=== PATIENT | female | born 2000 | race Caucasian/White ===

== ENCOUNTER 2020-11-21 09:00 | Emergency (ER) | payer OTHER, SELFPAY ==
--- NOTE | ~2020-11-21 | CT_ITS ---
EXAMINATION: CT brain wo con DATE: 11/21/2020 09:57 INDICATION: Headache. TECHNIQUE: Computed tomography (CT) of the head was performed without intravenous contrast. The mA wa s adjusted according to patient size. Iterative reconstruction technique was employed. The dose-lengt h product was 605.33 mGy-cm. COMPARISON: Head CT 09/02/2012 FINDINGS: There is no intracranial hemorrhage, acute infarction, or abnormal intracranial mass lesion . The ventricles are normal in size. The orbits are normal. The paranasal sinuses are clear. The mast oid air cells are normal. IMPRESSION: 1. Normal brain. Reviewed, dictated and finalized at location A. NESS PROGRAM ADMINISTRATOR IMPRESSION: 1. Normal brain.
--- NOTE | ~2020-11-21 | XR_ITS ---
EXAMINATION: XR chest 2V DATE: 11/21/2020 10:01 INDICATION: Weakness and cough TECHNIQUE: frontal and lateral views of the chest were obtained. COMPARISON: Chest radiograph dated 10/12/2018 FINDINGS: The lungs remain clear with no focal airspace opacities, pulmonary edema, pleural effusion or pneumot horax. The cardiomediastinal silhouette is normal. Visualized bones and soft tissues are unremarkable . IMPRESSION: 1. Normal chest radiograph. Reviewed, dictated and finalized at location B. Y MAKER IMPRESSION: 1. Normal chest radiograph.
--- NOTE | 2020-11-21 09:21 | ECG_ITS ---
Measurements Intervals [place] Rate: 94 P: 34 ND: 146 QRS: 94 QRSD: 96 T: 42 QT: 308 QTc: 387 Interpretive Statements SINUS RHYTHM RIGHT AXIS DEVIATION BASELINE WANDER- I, III, AVL BORDERLINE ECG Electronically Signed On 11-21-2020 10:18:43 CREDIT RISK REVIEW OFFICER by Casimiro Gay D.O.
[2020-11-21 09:22] VITALS: BP 112/59; PULSE 101; RESP 16; TEMP 36.4; O2SAT 99
[2020-11-21 09:28] LABS: Glucose Point of Care 72 (65-105)
[2020-11-21] MEDS: SODIUM CHLORIDE 0.9% IV 1,000 ML 999 ML IV CONT (09:35)
[2020-11-21] MEDS: ONDANSETRON INJ 4 MG/2 ML VIAL IV PUSH (09:36)
[2020-11-21] MEDS: KETOROLAC 30 MG/ML VIAL (*BKC) IV PUSH (09:38)
[2020-11-21 09:42] LABS: Add Urine Microscopic? YES; Appearance Urine Cloudy (Clear); Bilirubin Urine Negative (Negative); Blood Urine 1+ (Negative); Color Urine Yellow (Yellow); Glucose Urine UA Negative (Negative); Ketones Urine Negative (Negative); Leukocyte Esterase Ur 1+ (Negative); Nitrate Urine Negative (Negative); Protein Urine 1+ (Negative)
[2020-11-21 09:44] LABS: Pregnancy On Board Control Positive; Urine Pregnancy Test Negative
[2020-11-21 09:55] LABS: Basophils Absolute Auto 0.02 K/mm3 (0.00-0.10); Basophils Percent Auto 0.2 % (0.0-1.0); Eosinophils Absolute Auto 0.04 K/mm3 (0.02-0.50); Eosinophils Percent Auto 0.3 % (1.0-6.0); Hematocrit 41.6 % (35.0-49.0); Hemoglobin 14.5 g/dL (12.0-15.0); Immature Granulocyte Absolute 0.04 K/mm3 (0.00-0.00); Immature Granulocyte Percent A 0.3 % (0.0-0.0); Lymphocytes Absolute Auto 1.46 K/mm3 (1.10-4.50); Lymphocytes Percent Auto 12.7 % (18.0-42.0); Mean Corpuscular HGB Conc 34.9 g/dL (32.0-36.0); Mean Corpuscular Hemoglobin 31.3 pg (27.0-31.0); Mean Corpuscular Volume 89.7 fL (78.0-102.0); Mean Platelet Volume 9.9 fl (9.2-11.8); Monocytes Absolute Auto 0.29 K/mm3 (0.10-0.90); Monocytes Percent Auto 2.5 % (2.0-11.0); Neutrophils Absolute Auto 9.6 K/mm3 (1.7-7.2); Platelet Count Result 264 K/mm3 (150-420); Red Blood Count 4.64 M/mm3 (4.20-5.40); Red Cell Distribution Width 11.5 % (11.6-14.4); White Blood Count 11.5 K/mm3 (4.8-10.8)
[2020-11-21 09:57] LABS: Influenza Control Valid (Valid)
[2020-11-21 09:58] LABS: Bacteria Urine 1+ /hpf; Squamous Epithelial Cell Urine Moderate /hpf (Few); WBC Urine >75 /hpf (0-3)
[2020-11-21 09:59] LABS: Amphetamine Screen Urine Negative (Negative); Barbiturate Screen Urine Negative (Negative); Benzodiazepines Screen Urine Negative (Negative); Cannabinoid Screen Urine Negative (Negative); Cocaine Screen Urine Negative (Negative); Methadone Screen Urine Negative (Negative); Opiate Screen Urine Negative (Negative); Phencyclidine Screen Urine Negative (Negative)
[2020-11-21 10:15] LABS: Lactic Acid Reflex 1.1 mmol/L (0.4-2.0)
[2020-11-21 10:21] LABS: Alanine Aminotransferase 54 U/L (14-59); Albumin Level 3.5 g/dL (3.4-5.0); Alkaline Phosphatase 59 U/L (46-116); Anion Gap 9 mmol/L (8-16); Aspartate Amino Transferase 23 U/L (15-37); Bilirubin,Total 0.9 mg/dL (0.00-1.00); Blood Urea Nitrogen 11 mg/dL (7-18); Calcium 8.2 mg/dL (8.5-10.1); Carbon Dioxide 28 mmol/L (21-32); Chloride 102 mmol/L (98-108); Creatine Kinase 111 U/L (26-192); Estimated CRCL calculation 84 ml/min; Estimated Glomerular Filt Rate 58; Glucose 99 mg/dL (70-99); Magnesium 1.6 mg/dL (1.8-2.4); Osmolality Calculated 287 mOsm/kg (285-295); Potassium 3.5 mmol/L (3.5-5.1); Sodium 139 mmol/L (136-145); Total Protein 7.6 g/dL (6.4-8.2)
[2020-11-21 10:22] LABS: Thyroid Stimulating Hormone 2.15 uIU/mL (0.36-3.74)
--- NOTE | 2020-11-21 10:28 | ED.WEAKNESS ---
HPI - Weakness General Chief complaint: Headache Stated complaint: SHAKING Source: patient and family History of Present Illness HPI Narrative: this is a 20-year-old female that presents with generalized weakness and shaking that started this morning currently she is not shaking is comfortable with no fever chills no chest pain no shortness of breath did complain of mild headache the shaking was witnessed by her grandmother but only while she was being brought into the emergency department and mention that her hand was shaking. Patient also feels that she had some numbness and tingling in her feet. There is no diarrhea or constipation does have some mild dysuria with some urinary frequency with no abdominal pain no flank pain. Complaint: generalized weakness Onset (ago): hour(s) Duration: intermittent Location: generalized Migration: none Severity: mild Quality: tingling and numbness Relieving factors: none Exacerbating factors: none Related Data Allergies Allergy/AdvReac Type Severity Reaction Status Date / Time No Known Allergies Allergy Verified 09/10/19 04:06 Review of Systems Review of Systems: All systems reviewed & are unremarkable except as noted in HPI and below PMFSH Past Medical History Medical History Migraine Exam Const: General: no acute distress Orientation/consciousness: patient oriented x3 HENMT: Head: normal to inspection Eyes: Conjunctivae: conjunctivae normal Pupils: Equal, round and reactive pupils present EOM: EOMs intact bilaterally Neck: Neck: normal visual inspection, no lymphadenopathy and no meningeal signs Chest: Chest palpation & inspection: normal inspection of the chest and abnormal inspection of the chest Resp: Effort & Inspection: normal respiratory effort GI: GI Palp: Yes Soft to palpation : General: Yes no CVA tenderness Urinary Catheter: Urinary Catheter: patent and draining Back/Spine/Pelvis: Back: no CVA tenderness Skin: General skin exam: normal color Rashes: no rashes Neuro: General: patient oriented x3 and moves all extremities Extrem: General: normal to inspection and no pedal edema Psych: Appearance: grossly normal and well kempt Mental Status: mental status grossly normal Affect: normal affect Course Course Emergency Course: after reassessment of patient's symptoms have improved with IV fluids, headache is also improved, currently no shaking and reviewed CT findings and chest x-ray and I reviewed EKG and labs with patient. Reviewed with patient urinalysis which showed that she does have urinary tract infection and will send antibiotics to treat her urinary tract infection to her pharmacy and advised for her to follow-up with her primary care physician within Vital Signs Vital signs: Vital Signs Temperature 36.4 C 11/21/20 09:22 Pulse Rate 101 H 11/21/20 09:22 Respiratory Rate 16 11/21/20 09:22 Blood Pressure 112/59 L 11/21/20 09:22 Pulse Oximetry 99 11/21/20 09:22 Temperature 36.4 C 11/21/20 09:22 Pulse Rate 101 H 11/21/20 09:22 Respiratory Rate 16 11/21/20 09:22 Blood Pressure 112/59 L 11/21/20 09:22 Pulse Oximetry 99 11/21/20 09:22 MDM - Weakness Lab Data Result diagrams: 11/21/20 09:50 11/21/20 09:50 Labs: Lab Results 11/21/20 11/21/20 11/21/20 Range/Units 09:26 09:34 09:34 WBC (4.8-10.8) K/mm3 RBC (4.20-5.40) M/mm3 Hgb (12.0-15.0) g/dL Hct (35.0-49.0) % MCV (78.0-102.0) fL MCH (27.0-31.0) pg MCHC (32.0-36.0) g/dL RDW (11.6-14.4) % Plt Count (150-420) K/mm3 MPV (9.2-11.8) fl Immature Gran % (Auto) (0.0-0.0) % Neut % (Auto) (50.0-70.0) % Lymph % (Auto) (18.0-42.0) % [place] % (Auto) (2.0-11.0) % Eos % (Auto) (1.0-6.0) % Baso % (Auto) (0.0-1.0) % Lymph # (Auto) (1.10-4.50) K/mm3 [place] # (Auto) (0.10-0.90) K/mm3 Eos #
[2020-11-21 10:49] VITALS: BP 95/43; PULSE 92; RESP 16; O2SAT 96
== END 2020-11-21 10:50 | disposition home or self-care (01) ==
PROVIDERS: Emergency Provider Emergency Medicine; PCP Family Medicine
DX: E86.0 Dehydration (principal); N30.00 Acute cystitis without hematuria
CPT/HCPCS: 36415; 70450; 71046; 80053; 80307; 81001; 81025; 82550; 83605; 83735; 84443; 85025; 87040; 87804; 93005; 96361; 96374; 96375; 99283; 99284; J1885; J2405; J7030

== ENCOUNTER 2021-02-09 14:23 | Emergency (ER) | payer OTHER, SELFPAY ==
--- NOTE | ~2021-02-09 | XR_ITS ---
EXAMINATION: XR ankle RT 2V EXAM DATE: 02/09/2021 15:12 INDICATION: Initial encounter following injury, with pain of the right ankle. TECHNIQUE: Frontal and lateral projections of the right ankle. Comparison is made to prior examinati on from 02/21/2019. FINDINGS: There are no acute right ankle fractures or dislocations identified. There is no subcutane ous gas. The soft tissue is unremarkable. There are no radiopaque foreign bodies. IMPRESSION: 1. XR ankle RT 2V exam without acute osseous findings. Reviewed, dictated and finalized at location A.
[2021-02-09 15:00] VITALS: BP 135/86; PULSE 96; RESP 20; TEMP 36.7; O2SAT 97
--- NOTE | 2021-02-09 15:11 | ED.LOWEXIN ---
HPI - Extremity Injury (Lower) General Source: patient Mode of arrival: ambulatory Limitations: no limitations History of Present Illness HPI Narrative: this is a 20-year-old female presents with some twisting her right ankle while at work causing pain with some currently no swelling no bruising rates her pain about a 4/10 has naproxen at home this occurred while she was at work and slipped. Currently has full range of motion with her right foot and ankle. No numbness or tingling MD complaint: ankle injury Onset (ago): hour(s) Injury: Right: ankle ( Tenderness lateral aspect of right ankle) Type of Injury: inversion Place: work Severity: moderate Severity scale (1-10): 4 Relieving factors: NSAID Exacerbating factors: weight bearing Context: walking Related Data Home Medications Medication Instructions Recorded Confirmed cyclobenzaprine 10 mg PO TID PRN 02/09/21 02/09/21 naproxen 500 mg PO BID PRN 02/09/21 02/09/21 Allergies Allergy/AdvReac Type Severity Reaction Status Date / Time diphenhydramine AdvReac Unknown Verified 02/09/21 14:59 [From Natasha] Review of Systems Review of Systems: All systems reviewed & are unremarkable except as noted in HPI and below PMFSH Past Medical History Medical History Migraine Social History Social History Gender identity (if verbalized by the patient): Female Exam Const: General: no acute distress and alert Orientation/consciousness: patient oriented x3 HENMT: Head: normal to inspection Eyes: Conjunctivae: conjunctivae normal Pupils: Equal, round and reactive pupils present EOM: EOMs intact bilaterally Neck: Neck: normal visual inspection, no lymphadenopathy and no meningeal signs Resp: Effort & Inspection: normal respiratory effort Cardio: Rate: regular rate Rhythm: regular rhythm : General: Yes no CVA tenderness Back/Spine/Pelvis: Back: no CVA tenderness Skin: General skin exam: normal color Rashes: no rashes Extrem: General: normal to inspection and no pedal edema Other: tenderness lateral aspect of her right ankle with palpation has good range of motion with a brisk pedal pulse on the right Psych: Mental Status: mental status grossly normal Course Course Emergency Course: x-rays reviewed with patient advised to continue her current dose of naproxen follow-up with primary care physician if symptoms persist or worsen. Vital Signs Vital signs: Vital Signs Temperature 36.7 C 02/09/21 15:00 Pulse Rate 96 02/09/21 15:00 Respiratory Rate 20 02/09/21 15:00 Blood Pressure 135/86 02/09/21 15:00 Pulse Oximetry 97 02/09/21 15:00 Temperature 36.7 C 02/09/21 15:31 Pulse Rate 98 02/09/21 15:31 Respiratory Rate 20 02/09/21 15:31 Blood Pressure 130/78 02/09/21 15:31 Pulse Oximetry 96 02/09/21 15:31 Critical Care Time Critical Care Time Critical Care Time: No Discharge Plan Discharge Clinical Impression: Ankle sprain and strain Patient Disposition: Home, Self-Care Condition: Stable Instructions: Antibiotic Form, Ankle Sprain (ED) Additional Instructions: Take medicine as prescribed and follow-up with primary care physician if symptoms persist or worsen. Prescriptions: No Action cyclobenzaprine 10 mg tablet 10 mg PO TID PRN (Reason: Muscle Spasm) RF: 0 naproxen 500 mg tablet 500 mg PO BID PRN (Reason: Pain) RF: 0 Follow-up/Referrals: Tessa,ISSA Zepeda [Primary Care Provider] - Stand Alone Forms: Work/School Release IP Time of Disposition: 15:29
[2021-02-09 15:31] VITALS: BP 130/78; PULSE 98; RESP 20; TEMP 36.7; O2SAT 96
== END 2021-02-09 15:40 | disposition home or self-care (01) ==
PROVIDERS: Emergency Provider Emergency Medicine; PCP Physician Assistant
DX: S93.401A Sprain of unspecified ligament of right ankle, initial encounter (principal); X50.1XXA Overexertion from prolonged static or awkward postures, initial encounter
CPT/HCPCS: 73600; 99282; 99283

== ENCOUNTER 2021-02-17 09:27 | Emergency (ER) | payer OTHER, SELFPAY ==
[2021-02-17 09:43] VITALS: BP 92/66; PULSE 89; RESP 18; TEMP 36.2; O2SAT 100
--- NOTE | 2021-02-17 10:42 | ED.HA ---
HPI - Headache General Chief Complaint: Headache Stated Complaint: headache, neck pain Time Seen by Provider: 02/17/21 10:09 Source: patient Mode of arrival: ambulatory Limitations: no limitations History of Present Illness HPI Narrative: This is a 20 year old female that presents to the ER for headache since this morning. Reports she has been having trouble with sinus issues as she usually does this time of the year. Reports she feels pressure in her head. Reports she feels like her ears need to pop. She does have history of migraines. Also reports she might be as her last cycle was in November. Denies fever, stiff neck, sore throat, cough, vision changes, vomiting, numbness or weakness. Related Data Home Medications Medication Instructions Recorded Confirmed cyclobenzaprine 10 mg PO TID PRN 02/09/21 02/09/21 naproxen 500 mg PO BID PRN 02/09/21 02/09/21 Allergies Allergy/AdvReac Type Severity Reaction Status Date / Time diphenhydramine AdvReac Unknown Verified 02/17/21 10:31 [From Natasha] Review of Systems Review of Systems: Narrative: CONSTITUTIONAL: Denies fever EYES: Denies visual changes ENT: Reports congestion RESPIRATORY: Denies cough GASTROINTESTINAL: Denies vomiting NEUROLOGIC: Reports headache. Denies numbness, or weakness. All systems reviewed & are unremarkable except as noted in HPI and below PMFSH Past Medical History Medical History Migraine Social History Social History (Updated 02/17/21 @ 10:50 by Nancie Wong PA-C) Smoking status: Current every day smoker Substance use: never Gender identity (if verbalized by the patient): Female Exam Narrative: Exam Narrative: GENERAL: Well-appearing, obese, and in no acute distress. HEAD: Normocephalic, atraumatic. EYES: PERRLA and EOMI. ENT: Nares clear, no rhinorrhea or epistaxis. Mucous membranes moist. Oropharynx without tonsillar hypertrophy exudate or other lesions. Bilateral TMs pearly white non-bulging. No sinus tenderness NECK: Supple. No adenopathy or masses. Normal range of motion CHEST: Clear to auscultation. No respiratory distress. No wheezes rales or rhonchi HEART: Regular rate and rhythm. No murmur heard. Normal peripheral pulses. EXTREMITIES: Normal range of motion. No edema. SKIN: Warm, dry, no rash. NEURO: No focal deficits. Alert and oriented x3. Cranial nerves II through XII grossly intact. Normal [id number] PSYCH: Normal mood and affect Course Vital Signs Vital signs: Vital Signs Temperature 97.1 F L 02/17/21 09:43 Pulse Rate 89 02/17/21 09:43 Respiratory Rate 18 02/17/21 09:43 Blood Pressure 92/66 L 02/17/21 09:43 Pulse Oximetry 100 02/17/21 09:43 Temperature 97.1 F L 02/17/21 09:43 Pulse Rate 86 02/17/21 12:26 Respiratory Rate 15 02/17/21 12:26 Blood Pressure 104/59 L 02/17/21 12:26 Pulse Oximetry 100 02/17/21 12:26 MDM - Headache MDM Narrative Medical decision making narrative: Patient presents to the emergency department for headache that started this morning. Also reports some sinus congestion. She is afebrile and nontoxic-appearing. CBC is without leukocytosis. Does show hemoconcentration, patient hydrated with IV fluids in the ED. Metabolic panel with kidney function that appears to be around her baseline. ESR is normal. Bedside test is negative. Patient given migraine cocktail with relief of headache. She is stable and felt appropriate for further outpatient evaluation. She was given warnings to return to the ER Lab Data Attestation: I reviewed the patient's lab results. Result diagrams: 02/17/21 11:39 02/17/21 11:39 Labs: Lab Results 02/17/21 02/17/21 Range/Units 11:39 11:39 WBC 8.7 (4.5-10.0) K/mm3 RBC 5.25 (4.2-5.4) M/mm3 Hgb 16.2 H (12.0-15.0) g/dL Hct 47.5 H (37.0-47.0) % MCV 90.5 (80-100) fl MCH 30.9 (26-34) pg
--- NOTE | 2021-02-17 11:25 | PC.NURSE ---
Assumed care of pt, updated pt on POC, pt ambulated to RR.
[2021-02-17] MEDS: METOCLOPRAMIDE HCL INJ 10 MG/2 ML VIAL IV PUSH (11:42)
[2021-02-17] MEDS: KETOROLAC 15 MG/ML VIAL (*BKC) IV PUSH (11:42)
[2021-02-17] MEDS: SODIUM CHLORIDE 0.9% IV 1,000 ML 999 ML IV CONT (11:42)
[2021-02-17 11:47] LABS: Basophils Percent Auto 0.3 % (0.2-1.2); Eosinophils Absolute Auto 0.2 K/mm3 (0-0.3); Eosinophils Percent Auto 2.1 % (0-4.4); Hematocrit 47.5 % (37.0-47.0); Hemoglobin 16.2 g/dL (12.0-15.0); Immature Granulocyte Absolute 0.01 K/mm3 (0.00-0.031); Immature Granulocyte Percent A 0.1 % (0-0.5); Lymphocytes Absolute Auto 2.63 K/mm3 (0.9-3.2); Lymphocytes Percent Auto 30.4 % (18.3-44.2); Mean Corpuscular HGB Conc 34.1 g/dl (32-36); Mean Corpuscular Hemoglobin 30.9 pg (26-34); Mean Corpuscular Volume 90.5 fl (80-100); Mean Platelet Volume 9.6 fl (7.4-10.4); Monocytes Absolute Auto 0.7 K/mm3 (0.1-0.6); Monocytes Percent Auto 8.2 % (2.6-8.5); Neutrophils Absolute Auto 5.1 K/mm3 (1.3-6.7); Neutrophils Percent Auto 58.9 % (45.5-73.1); Platelet Count Result 314 k/mm3 (150-375); Red Blood Count 5.25 M/mm3 (4.2-5.4); Red Cell Distribution Width 11.7 % (11.5-14.5); White Blood Count 8.7 K/mm3 (4.5-10.0)
[2021-02-17 12:05] LABS: Anion Gap 5 mmol/L (8-16); Blood Urea Nitrogen 15 mg/dL (7-17); Calcium 9.8 mg/dL (8.4-10.2); Carbon Dioxide 30 mmol/L (22-30); Chloride 105 mmol/L (98-107); Estimated CRCL calculation 94 ml/min; Estimated Glomerular Filt Rate > 60; Glucose 86 mg/dL (65-105); Potassium 4.1 mmol/L (3.4-5.0); Sodium 140 mmol/L (137-145)
[2021-02-17 12:26] VITALS: BP 104/59; PULSE 86; RESP 15; O2SAT 100
[2021-02-17 13:16] LABS: Erythrocyte Sedimentation Rate 14 mm/hr (0-20)
[2021-02-17 13:22] VITALS: BP 106/63; PULSE 84; RESP 14; O2SAT 100
== END 2021-02-17 13:35 | disposition home or self-care (01) ==
PROVIDERS: Physician Assistant; Emergency Provider Emergency Medicine; PCP Physician Assistant
DX: R51.9 Headache, unspecified (principal); F17.200 Nicotine dependence, unspecified, uncomplicated
CPT/HCPCS: 36415; 80048; 81025; 85025; 85652; 96361; 96365; 96375; 99284; J0131; J1885; J2765; J7030

== ENCOUNTER 2021-05-05 13:00 | Emergency (ER) | payer OTHER, SELFPAY ==
--- NOTE | ~2021-05-05 | XR_ITS ---
EXAMINATION: XR elbow LT min 3V EXAM DATE: 05/05/2021 14:18 INDICATION: fall/pain, left elbow. Initial encounter. TECHNIQUE: Left elbow frontal, lateral with flexion, and oblique projections obtained and reviewed. There is no prior study for comparison. FINDINGS: Left elbow anterior humeral line intact. There are no acute fractures or dislocations sue ntified. There is no subcutaneous gas. The soft tissue is unremarkable. There are no radiopaque f oreign bodies. IMPRESSION: No acute osseous findings. Reviewed, dictated and finalized at location B. IMPRESSION: No acute osseous findings.
[2021-05-05 13:37] VITALS: BP 140/79; PULSE 104; RESP 16; TEMP 36.9; O2SAT 99
[2021-05-05 14:19] VITALS: BP 140/79; PULSE 104; RESP 16; TEMP 36.9; O2SAT 99
--- NOTE | 2021-05-05 14:42 | ED.UPPEXIN ---
HPI - Extremity Injury (Upper) General Chief Complaint: Extremity Injury, Upper Stated Complaint: fall/elbow injury Time Seen by Provider: 05/05/21 14:26 Source: patient Mode of arrival: ambulatory Limitations: no limitations History of Present Illness HPI narrative: Patient is a 20-year-old female who presents complaining of left elbow pain. Patient reports she was squatted at work when lost balance falling onto her left elbow. Patient reports tenderness with palpation, reports increased pain with range of motion. She reports falling on concrete floor. She denies all other injuries. She denies significant medical history. She denies taking [id number] medications prior to arrival. MD complaint: injury to: left and elbow Related Data Home Medications Medication Instructions Recorded Confirmed cyclobenzaprine 10 mg PO TID PRN 02/09/21 02/09/21 naproxen 500 mg PO BID PRN 02/09/21 02/09/21 Allergies Allergy/AdvReac Type Severity Reaction Status Date / Time diphenhydramine AdvReac Unknown Verified 02/17/21 10:31 [From Natasha] Review of Systems Review of Systems: Narrative: CONSTITUTIONAL: Denies fever, chills, or sweats. EYES: Denies visual changes, redness, or discharge. ENT: Denies rhinorrhea, congestion, sore throat, or otalgia. CARDIOVASCULAR: Denies chest pain, palpitations, or edema. RESPIRATORY: Denies cough or dyspnea. GASTROINTESTINAL: Denies abdominal pain, nausea, vomiting, or diarrhea. GENITOURINARY: Denies dysuria or hematuria. SKIN: Denies rash or itching. MUSCULOSKELETAL: Left elbow pain NEUROLOGIC: Denies headache, numbness, dizziness, or weakness. PSYCHIATRIC: Denies anxiety or depression. [facility] Past Medical History Medical History Migraine Social History Social History (Updated 05/05/21 @ 14:44 by JOSIAH Chan) Smoking status: Current every day smoker Alcohol intake: current Alcohol use details: Occasional Substance use: never Occupation/Education: occupation Gender identity (if verbalized by the patient): Female Comments At the time of signature, I have reviewed and agree with nursing past medical, surgical, social, and family history unless otherwise noted. Please see nursing chart for further information. There is no relevant family history pertinent to the presenting complaint. Exam Narrative: Exam Narrative: GENERAL: Well-appearing, well-nourished, and in no acute distress. HEAD: Normocephalic, atraumatic. EYES: EOMI. No redness or drainage. Conjunctiva are normal. ENT: Mucous membranes pink and moist. CHEST: No respiratory distress. Clear to auscultation. HEART: Regular rate and rhythm. No murmur appreciated. Normal peripheral pulses. EXTREMITIES: Tenderness with palpation to left elbow, mild edema noted. SKIN: Warm, dry, no rash. NEURO: No focal deficits. Alert and oriented x3. Gait steady. PSYCH: Normal affect. No signs of depression or anxiety. Course Vital Signs Vital signs: Vital Signs Temperature 36.9 C 05/05/21 13:37 Pulse Rate 104 H 05/05/21 13:37 Respiratory Rate 16 05/05/21 13:37 Blood Pressure 140/79 05/05/21 13:37 Pulse Oximetry 99 05/05/21 13:37 Temperature 36.9 C 05/05/21 14:19 Pulse Rate 104 H 05/05/21 14:19 Respiratory Rate 16 05/05/21 14:19 Blood Pressure 140/79 05/05/21 14:19 Pulse Oximetry 99 05/05/21 14:19 Reviewed-patient is informed that they may have pre-hypertension or hypertension based on a blood pressure reading. I recommend the patient call the primary care provider listed on their discharge instructions or a physician of their choice this week to arrange follow-up for further evaluation of possible pre-hypertension or hypertension. MDM - Extremity Injury (Upper) MDM Narrative Medical decision making narrative: Patient's x-ray shows no acute osseous abnormality. Discussed with patient most likely contusion, mild swelli
== END 2021-05-05 15:00 | disposition home or self-care (01) ==
LOC: ANHED 14:50
PROVIDERS: Emergency Provider Nurse Practitioner; PCP Physician Assistant
DX: S50.02XA Contusion of left elbow, initial encounter (principal); F17.210 Nicotine dependence, cigarettes, uncomplicated; R03.0 Elevated blood-pressure reading, without diagnosis of hypertension; W18.39XA Other fall on same level, initial encounter
CPT/HCPCS: 73080; 99283

== ENCOUNTER 2022-06-08 12:49 | Outpatient (CLI) | payer OTHER, SELFPAY ==
--- NOTE | ~2022-06-08 | XR_ITS ---
EXAMINATION: XR foot LT min 3V DATE: 06/08/2022 13:40 INDICATION: Left foot pain TECHNIQUE: Dorsoplantar, lateral, and 2 oblique views of the left foot were obtained. COMPARISON: None. FINDINGS: Bone alignment is normal. There is no fracture. 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 There is mild dorsal soft tissue swelling of the foot. IMPRESSION: 1. Mild soft tissue swelling of the foot without acute osseous abnormality. Reviewed, dictated and finalized at location A.
== END 2022-06-08 12:50 | disposition home or self-care (01) ==
LOC: CHSIMG 13:18
PROVIDERS: PCP Physician Assistant; Visit Provider Physician Assistant
DX: M79.672 Pain in left foot (principal)
CPT/HCPCS: 73630

== ENCOUNTER 2022-12-03 02:48 | Emergency (ER) | payer OTHER, SELFPAY ==
[2022-12-03 02:51] VITALS: BP 133/104; PULSE 87; RESP 20; TEMP 36.7; O2SAT 97
[2022-12-03 03:09] LABS: Basophils Absolute Auto 0.03 K/mm3 (0.00-0.10); Basophils Percent Auto 0.3 % (0.0-1.0); Eosinophils Absolute Auto 0.16 K/mm3 (0.02-0.50); Eosinophils Percent Auto 1.6 % (1.0-6.0); Hematocrit 48.9 % (35.0-49.0); Hemoglobin 16.7 g/dL (12.0-15.0); Immature Granulocyte Absolute 0.02 K/mm3 (0.00-0.00); Immature Granulocyte Percent A 0.2 % (0.0-0.0); Lymphocytes Absolute Auto 3.01 K/mm3 (1.10-4.50); Lymphocytes Percent Auto 30.6 % (18.0-42.0); Mean Corpuscular HGB Conc 34.2 g/dL (32.0-36.0); Mean Corpuscular Hemoglobin 31.6 pg (27.0-31.0); Mean Corpuscular Volume 92.6 fL (78.0-102.0); Mean Platelet Volume 9.9 fl (9.2-11.8); Monocytes Absolute Auto 0.85 K/mm3 (0.10-0.90); Monocytes Percent Auto 8.6 % (2.0-11.0); Neutrophils Absolute Auto 5.8 K/mm3 (1.7-7.2); Neutrophils Percent Auto 58.7 % (50.0-70.0); Platelet Count Result 313 K/mm3 (150-420); Red Blood Count 5.28 M/mm3 (4.20-5.40); Red Cell Distribution Width 11.3 % (11.6-14.4); White Blood Count 9.8 K/mm3 (4.8-10.8)
[2022-12-03 03:24] LABS: Alanine Aminotransferase 64 U/L (14-59); Albumin Level 3.6 g/dL (3.4-5.0); Alkaline Phosphatase 54 U/L (46-116); Anion Gap 11 mmol/L (8-16); Aspartate Amino Transferase 57 U/L (15-37); Bilirubin,Total 0.7 mg/dL (0.00-1.00); Blood Urea Nitrogen 23 mg/dL (7-18); Calcium 8.9 mg/dL (8.5-10.1); Carbon Dioxide 20 mmol/L (21-32); Chloride 105 mmol/L (98-108); Estimated CRCL calculation 86 ml/min; Estimated Glomerular Filt Rate 55; Glucose 96 mg/dL (70-99); Magnesium 2.1 mg/dL (1.8-2.4); Osmolality Calculated 285 mOsm/kg (285-295); Potassium 3.9 mmol/L (3.5-5.1); Sodium 136 mmol/L (136-145); Total Protein 7.9 g/dL (6.4-8.2)
--- NOTE | 2022-12-03 03:48 | ED.GENADULT ---
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 She has been feeling shaky and sometimes dizzy ever since. She says that 1 time before this she had the same kind of feeling and was dehydrated and received some fluids. She says that she has been drinking regularly and not having too much caffeine. complaint: Shakiness Onset (ago): day(s) (1) Relieving factors: none Exacerbating factors: none Associated symptoms: denies other symptoms Treatments prior to arrival: none Related Data Home Medications Medication Instructions Recorded Confirmed clomiphene citrate 50 mg tablet 50 mg DAILY 12/03/22 12/03/22 medroxyprogesterone 10 mg tablet 10 mg PO DAILY 12/03/22 12/03/22 Allergies Allergy/AdvReac Type Severity Reaction Status Date / Time diphenhydramine AdvReac Unknown Verified 02/17/21 10:31 [From Natasha] Review of Systems Review of Systems: All systems reviewed & are unremarkable except as noted in HPI and below [facility] Past Medical History Medical History (Updated 12/04/22 @ 00:01 by Alfred Howell) Fatty liver Migraine Social History Social History Smoking status: Current every day smoker Alcohol intake: current Alcohol use details: Occasional Substance use: never Occupation/Education: occupation Gender identity (if verbalized by the patient): Female Exam Const: General: cooperative, healthy appearing, comfortable, no acute distress, alert, awake and Physically active Nutritional Appearance: obese Orientation/consciousness: patient oriented x3 Limitations: no limitations Other: Female tech in room during examination. HENMT: Head: normal to inspection Ears: hearing grossly normal bilaterally and external ears normal Face/Nose/Sinus: Normal external nose present Face and sinus: normal facial exam Mouth: Yes moist mucous membranes Eyes: General: appearance normal, both eyes and all related structures Pupils: Equal, round and reactive pupils present EOM: EOMs intact bilaterally Neck: Neck: normal visual inspection, full ROM, trachea midline and supple Resp: Effort & Inspection: normal respiratory effort Auscultation: clear to auscultation bilaterally Cardio: Rate: regular rate Rhythm: regular rhythm Heart sounds: no murmurs GI: Inspection: normal to inspection GI Palp: Yes Soft to palpation and No Tenderness to palpation present (GI) Auscultation: normal bowel sounds Back/Spine/Pelvis: Cervical Spine: cervical ROM normal Thoracic/Lumbar Spine: thoraco-lumbar ROM normal Skin: General skin exam: normal color, no rashes or lesions noted, elasticity normal and turgor normal Neuro: General: patient oriented x3, moves all extremities, no focal motor deficits and CN's II-XI intact bilaterally Speech: normal speech Gait exam (Neuro): Normal gait present Motor exam (neuro): 5/5 motor strength present throughout Extrem: General: normal to inspection, full ROM and no clubbing, cyanosis or edema Psych: Appearance: grossly normal and well kempt Mental Status: mental status grossly normal Speech and movement: Normal speech and movement present Affect: normal affect Attitude: cooperative Thought content: Yes Normal thought content present Course Vital Signs Vital signs: Vital Signs Temperature 36.7 C 12/03/22 02:51 Pulse Rate 87 12/03/22 02:51 Respiratory Rate 20 12/03/22 02:51 Blood Pressure 133/104 H 12/03/22 02:51 Pulse Oximetry 97 12/03/22 02:51 Oxygen Delivery Room Air 12/03/22 02:51 Temperature 36.9 C 12/03/22 04:01 Pulse Rate 90 12/03/22 04:01 Respiratory Rate 20 12/03/22 04:01 Blood Pressure 110/88 12/03/22 04:01 Puls
[2022-12-03] MEDS: SODIUM CHLORIDE 0.9% IV 1,000 ML 999 ML IV CONT (03:52)
[2022-12-03 04:01] VITALS: BP 110/88; PULSE 90; RESP 20; TEMP 36.9; O2SAT 100
== END 2022-12-03 04:17 | disposition home or self-care (01) ==
PROVIDERS: Emergency Provider Emergency Medicine; PCP Physician Assistant
DX: K76.0 Fatty (change of) liver, not elsewhere classified (principal); E86.0 Dehydration; F17.200 Nicotine dependence, unspecified, uncomplicated
CPT/HCPCS: 36415; 80053; 83735; 85025; 99283; J7030

== ENCOUNTER 2023-02-23 13:13 | Outpatient (CLI) | payer OTHER, SELFPAY ==
[2023-02-23 13:36] LABS: Basophils Absolute Auto 0.02 K/mm3 (0.00-0.10); Basophils Percent Auto 0.3 % (0.0-1.0); Eosinophils Absolute Auto 0.18 K/mm3 (0.02-0.50); Eosinophils Percent Auto 2.5 % (1.0-6.0); Hematocrit 44.6 % (35.0-49.0); Hemoglobin 15.4 g/dL (12.0-15.0); Immature Granulocyte Absolute 0.02 K/mm3 (0.00-0.00); Immature Granulocyte Percent A 0.3 % (0.0-0.0); Lymphocytes Absolute Auto 2.35 K/mm3 (1.10-4.50); Lymphocytes Percent Auto 32.6 % (18.0-42.0); Mean Corpuscular HGB Conc 34.5 g/dL (32.0-36.0); Mean Corpuscular Hemoglobin 31.5 pg (27.0-31.0); Mean Corpuscular Volume 91.2 fL (78.0-102.0); Mean Platelet Volume 9.9 fl (9.2-11.8); Monocytes Absolute Auto 0.37 K/mm3 (0.10-0.90); Monocytes Percent Auto 5.1 % (2.0-11.0); Neutrophils Absolute Auto 4.3 K/mm3 (1.7-7.2); Neutrophils Percent Auto 59.2 % (50.0-70.0); Platelet Count Result 293 K/mm3 (150-420); Red Blood Count 4.89 M/mm3 (4.20-5.40); Red Cell Distribution Width 11.6 % (11.6-14.4); White Blood Count 7.2 K/mm3 (4.8-10.8)
[2023-02-23 14:29] LABS: Alanine Aminotransferase 68 U/L (14-59); Albumin Level 3.5 g/dL (3.4-5.0); Alkaline Phosphatase 54 U/L (46-116); Anion Gap 12 mmol/L (8-16); Aspartate Amino Transferase 27 U/L (15-37); Bilirubin,Total 0.6 mg/dL (0.00-1.00); Blood Urea Nitrogen 12 mg/dL (7-18); Calcium 8.6 mg/dL (8.5-10.1); Carbon Dioxide 24 mmol/L (21-32); Chloride 104 mmol/L (98-108); Cholesterol 176 mg/dL (0-200); Estimated Glomerular Filt Rate 60; Glucose 120 mg/dL (70-99); HDL Direct 29 mg/dL (40-60); LDL Cholesterol Calculated 124 mg/dL (<130); Osmolality Calculated 290 mOsm/kg (285-295); Potassium 3.7 mmol/L (3.5-5.1); Sodium 140 mmol/L (136-145); Total Protein 6.9 g/dL (6.4-8.2); Triglycerides 116 mg/dL (0-150); Vitamin B12 556 pg/mL (193-986)
[2023-02-23 15:01] LABS: HIV 1 P24 AG Negative (Negative); HIV 1/2 AB Negative (Negative)
[2023-02-27 12:55] LABS: Vitamin D 25 Hydroxy 23 ng/mL (30-100)
[2023-02-27 13:57] LABS: RPR Screen Non-Reactive (Non-Reactive)
[2023-02-27 15:20] LABS: DHEA-Sulfate 242 mcg/dL (18-391); Insulin Level Total 89.9 uIU/mL (<=19.6)
[2023-02-28 12:16] LABS: Hepatitis B Surface Antigen Nonreactive (Nonreactive); Hepatitis C Signal to Cutoff 0.01 ratio (<1.00); Hepatitis C Virus Antibody Nonreactive (Nonreactive)
[2023-03-03 15:55] LABS: Testosterone Free 15.5 pg/mL (0.1-6.4); Testosterone Total 62 ng/dL (2-45)
== END 2023-02-23 13:14 | disposition home or self-care (01) ==
LOC: CHSLAB 13:15
PROVIDERS: PCP Physician Assistant; Visit Provider Advanced Practice Midwife
DX: N97.9 Female infertility, unspecified (principal)
CPT/HCPCS: 36415; 80053; 80061; 82306; 82607; 82627; 83498; 83525; 84402; 84403; 85025; 86592; 86703; 86803; 87340; 87491; 87591

== ENCOUNTER 2023-03-20 14:50 | Outpatient (CLI) | payer OTHER, SELFPAY ==
[2023-03-20 15:26] LABS: Beta HCG Quantitative < 1.00 mIU/mL (0-6)
== END 2023-03-20 14:51 | disposition home or self-care (01) ==
LOC: CHSLAB 14:54
PROVIDERS: Visit Provider Nurse Practitioner Women's Health
DX: N91.2 Amenorrhea, unspecified (principal)
CPT/HCPCS: 36415; 84702

== ENCOUNTER 2023-04-20 17:07 | Emergency (ER) | payer OTHER, SELFPAY ==
[2023-04-20 17:12] VITALS: BP 119/63; PULSE 88; RESP 20; TEMP 36.5; O2SAT 98
[2023-04-20] MEDS: SODIUM CHLORIDE 0.9% IV 1,000 ML 999 ML IV CONT (17:47)
[2023-04-20 17:54] LABS: Basophils Absolute Auto 0.05 K/mm3 (0.00-0.10); Basophils Percent Auto 0.5 % (0.0-1.0); Hematocrit 43.3 % (35.0-49.0); Hemoglobin 15.2 g/dL (12.0-15.0); Immature Granulocyte Absolute 0.03 K/mm3 (0.00-0.00); Immature Granulocyte Percent A 0.3 % (0.0-0.0); Lymphocytes Absolute Auto 2.27 K/mm3 (1.10-4.50); Lymphocytes Percent Auto 22.4 % (18.0-42.0); Mean Corpuscular HGB Conc 35.1 g/dL (32.0-36.0); Mean Corpuscular Hemoglobin 31.7 pg (27.0-31.0); Mean Corpuscular Volume 90.4 fL (78.0-102.0); Mean Platelet Volume 10.1 fl (9.2-11.8); Monocytes Absolute Auto 0.68 K/mm3 (0.10-0.90); Monocytes Percent Auto 6.7 % (2.0-11.0); Neutrophils Absolute Auto 6.8 K/mm3 (1.7-7.2); Neutrophils Percent Auto 67.1 % (50.0-70.0); Platelet Count Result 311 K/mm3 (150-420); Red Blood Count 4.79 M/mm3 (4.20-5.40); Red Cell Distribution Width 11.2 % (11.6-14.4); White Blood Count 10.1 K/mm3 (4.8-10.8)
--- NOTE | 2023-04-20 17:54 | ED.DIZZY ---
HPI - Dizziness General Chief Complaint: Dizziness Stated Complaint: heat exhaustion Time Seen by Provider: 04/20/23 17:30 Source: patient and family Mode of arrival: ambulatory History of Present Illness HPI Narrative: this is a 22-year-old female with no significant past medical history works in a kitchen and became overheated and felt exhausted and felt faint, patient states that she has been drinking fluids currently there is no fever chills no headache no blurry vision no chest pain no shortness of breath. MD elicited complaint: lightheadedness Onset (ago): hour(s) Timing: sudden onset Severity: mild Related Data Home Medications Medication Instructions Recorded Confirmed No Home Medications 04/20/23 04/20/23 Allergies Allergy/AdvReac Type Severity Reaction Status Date / Time diphenhydramine AdvReac Unknown Verified 04/20/23 17:31 [From Natasha] Review of Systems Review of Systems: All systems reviewed & are unremarkable except as noted in HPI and below PMFSH Past Medical History Medical History Fatty liver Migraine Social History Social History Smoking status: Current every day smoker Alcohol intake: current Alcohol use details: Occasional Substance use: never Occupation/Education: occupation Gender identity (if verbalized by the patient): Female Exam Const: General: healthy appearing Nutritional Appearance: well nourished Orientation/consciousness: patient oriented x3 Limitations: no limitations HENMT: Head: normal to inspection Face and sinus: normal facial exam Mouth: Yes Normal oral and palatal mucosa present Eyes: Conjunctivae: conjunctivae normal Pupils: Equal, round and reactive pupils present Neck: Neck: normal visual inspection Chest: Chest palpation & inspection: normal inspection of the chest Resp: Effort & Inspection: normal respiratory effort Auscultation: clear to auscultation bilaterally Cardio: Rate: regular rate Rhythm: regular rhythm GI: Auscultation: normal bowel sounds : General: Yes bladder normal to palpation Back/Spine/Pelvis: Back: no CVA tenderness Skin: General skin exam: normal color Rashes: no rashes Neuro: General: patient oriented x3 and moves all extremities Extrem: General: normal to inspection Psych: Mental Status: mental status grossly normal Affect: normal affect Course Course Emergency Course: Patient became overheated and IV fluids were given to patient blood work reviewed, patient feeling much improved after IV hydration. Vital Signs Vital signs: Vital Signs Temperature 36.5 C 04/20/23 17:12 Pulse Rate 88 04/20/23 17:12 Respiratory Rate 20 04/20/23 17:12 Blood Pressure 119/63 04/20/23 17:12 Pulse Oximetry 98 04/20/23 17:12 Oxygen Delivery Room Air 04/20/23 17:12 Temperature 36.5 C 04/20/23 17:12 Pulse Rate 88 04/20/23 17:12 Respiratory Rate 20 04/20/23 17:12 Blood Pressure 119/63 04/20/23 17:12 Pulse Oximetry 98 04/20/23 17:12 Oxygen Delivery Room Air 04/20/23 17:12 MDM - Dizziness Lab Data 04/20/23 17:49 04/20/23 17:49 Labs: Lab Results 04/20/23 Range/Units 17:49 WBC Pending RBC Pending Hgb Pending Hct Pending MCV Pending MCH Pending MCHC Pending RDW Pending Plt Count Pending MPV Pending Immature Gran % (Auto) Pending Neut % (Auto) Pending Lymph % (Auto) Pending [place] % (Auto) Pending Eos % (Auto) Pending Baso % (Auto) Pending Lymph # (Auto) Pending [place] # (Auto) Pending Eos # (Auto) Pending Baso # (Auto) Pending Abs Immat Gran (auto) Pending Absolute Neuts (auto) Pending Absolute Nucleated RBC Pending Nucleated RBC % Pending Sodium Pending Potassium Pending Chloride Pending Carbon Dioxide Pending Ani
[2023-04-20 18:08] LABS: Alanine Aminotransferase 96 U/L (14-59); Albumin Level 3.7 g/dL (3.4-5.0); Alkaline Phosphatase 67 U/L (46-116); Anion Gap 10 mmol/L (8-16); Aspartate Amino Transferase 34 U/L (15-37); Bilirubin,Total 0.5 mg/dL (0.00-1.00); Blood Urea Nitrogen 14 mg/dL (7-18); Calcium 9.2 mg/dL (8.5-10.1); Carbon Dioxide 27 mmol/L (21-32); Chloride 105 mmol/L (98-108); Creatine Kinase 258 U/L (26-192); Estimated CRCL calculation 89 ml/min; Estimated Glomerular Filt Rate 59; Glucose 116 mg/dL (70-99); Osmolality Calculated 295 mOsm/kg (285-295); Potassium 3.5 mmol/L (3.5-5.1); Sodium 142 mmol/L (136-145); Total Protein 7.5 g/dL (6.4-8.2)
[2023-04-20 18:53] VITALS: BP 115/62; PULSE 80; RESP 20; TEMP 36.8; O2SAT 98
== END 2023-04-20 18:55 | disposition home or self-care (01) ==
PROVIDERS: Emergency Provider Emergency Medicine; PCP Physician Assistant
DX: E86.0 Dehydration (principal); T67.5XXA Heat exhaustion, unspecified, initial encounter; F17.200 Nicotine dependence, unspecified, uncomplicated
CPT/HCPCS: 36415; 80053; 82550; 85025; 96360; 99283; J7030